=== PATIENT | male | born 1965 | race American Indian/Alaskan Native ===

== ENCOUNTER 2016-12-02 16:15 | Emergency (ER) | payer OTHER ==
--- NOTE | 2016-12-02 17:27 | Emergency Department Report ---
Chief Complaint: Chest Pain Stated Complaint: LEFT SIDE PAIN/NECK/ARMS Time Seen by Provider: 12/02/16 17:25 - HPI History of Present Illness: Patient here complaining of pain in left side of his neck, anterior and posterior shoulder, chest to the left side, radiating to left arm 2 weeks. He reports pain is 6 out of 10 and describes it as pressure. Patient said is worse with movement and lifting. He is also complaining and numbness to his finger on both hands off and on for a couple weeks. Denies any nausea or vomiting. He denies any medical problem. Denies any shortness of breath. - ROS Review of Systems: All systems are negative unless stated in HPI above. - Exam Vital Signs: Vital Signs 12/02/16 16:17 Temperature 97.7 F Pulse Rate 60 Respiratory 18 Rate Blood Pressure 141/90 O2 Sat by Pulse 100 Oximetry Physical Exam: General: This is a 51-year-old male well-nourished well-developed in no acute distress. CV: S1, S2. Regular rate and rhythm Lungs: clear to auscultate bilaterally, no rhonchi wheezes or rales. MSE screening note: Focused history and physical exam performed. Due to findings the following was ordered:see mdm ED Medical Decision Making - Medical Decision Making Medical decision making: Patient seen by provider in triage area. Appropriate protocol activated and patient to main ED to be seen by physician. ED Disposition for MSE Condition: Stable
[2016-12-02 18:08] LABS: Basophils % (Auto) 1.1 % (0.0-1.8); Eosinophils % (Auto) 1.2 % (0.0-4.3); Hematocrit 46.7 % (35.5-45.6); Hemoglobin 16.1 gm/dl (11.8-15.2); Mean Corpuscular HGB Conc 35 % (32-34); Mean Corpuscular Hemoglobin 34 pg (28-32); Mean Corpuscular Volume 100 fl (84-94); Platelet Count 161 K/mm3 (140-440); Red Blood Count 4.68 M/mm3 (3.65-5.03); Red Cell Distribution Width 12.1 % (13.2-15.2); White Blood Count 3.7 K/mm3 (4.5-11.0)
[2016-12-02 18:25] LABS: Creatine Kinase MB 2.5 ng/mL (0.0-4.0)
[2016-12-02 18:26] LABS: Alanine Aminotransferase 19 units/L (7-56); Albumin 4.2 g/dL (3.9-5); Albumin/Globulin Ratio 1.3 %; Alkaline Phosphatase 57 units/L (35-129); Anion Gap 17 mmol/L; BUN/Creatinine Ratio 17.77; Bilirubin,Total 0.7 mg/dL (0.1-1.2); Blood Urea Nitrogen 16 mg/dL (9-20); Calcium 9.2 mg/dL (8.4-10.2); Carbon Dioxide 26 mmol/L (22-30); Chloride 101.6 mmol/L (98-107); Creatine Kinase 113 units/L (55-170); Glucose 73 mg/dL (75-100); Potassium 3.8 mmol/L (3.6-5.0); Sodium 141 mmol/L (137-145); Total Protein 7.5 g/dL (6.3-8.2)
[2016-12-02 18:37] LABS: Bilirubin,Direct < 0.2 mg/dL (0-0.2); Bilirubin,Indirect 0.5 mg/dL
[2016-12-03 00:07] LABS: Creatine Kinase MB 2.2 ng/mL (0.0-4.0)
[2016-12-03 00:08] LABS: Creatine Kinase 109 units/L (55-170)
[2016-12-03] MEDS ORDERED: TORADOL IM ONE (01:55)
--- NOTE | 2016-12-03 01:56 | Emergency Department Report ---
ED General Adult HPI - General Chief complaint: Chest Pain Stated complaint: LEFT SIDE PAIN/NECK/ARMS Time Seen by Provider: 12/02/16 17:25 Source: patient, RN notes reviewed Mode of arrival: Ambulatory Limitations: No Limitations - History of Present Illness Initial comments: This is a 51-year-old male, previously unknown to me. Does not have a primary care doctor. Does not have chronic medical conditions. Denies cocaine use. States some family history of heart disease. Indicates no personal or family history of DVT or pulmonary embolus. Patient recently moved here from [place]. Approximately 2 weeks ago, while in [place], patient developed left-sided neck pain, left upper extremity pain that is shooting and tingling, and left-sided chest wall pain. There is no shortness of breath. There is no nausea, vomiting or diaphoresis. There is no leg pain. No leg swelling. Patient reports that he did drive here, but he reports that he stopped frequently, did not have any periods of immobility of greater than 4 hours. The patient reports that he does heavy lifting for work, and he describes unlimited exercise tolerance. There is no midline neck pain, there is no cavity weakness, there is no bladder or bowel retention or incontinence, there is no saddle anesthesia. -: Gradual Location: neck, chest, left, upper extremity Severity scale (0 -10): 6 Quality: aching Consistency: intermittent Improves with: rest Worsens with: movement Associated Symptoms: denies: confusion, chest pain, diaphoresis, fever/chills, headaches, loss of appetite, malaise, nausea/vomiting, rash, shortness of breath , syncope, weakness - Related Data Previous Rx's Medication Instructions Recorded Last Taken Type Ketorolac [Toradol] 10 mg PO Q6H PRN #20 tablet 12/03/16 Unknown Rx Allergies Allergy/AdvReac Type Severity Reaction Status Date / Time No Known Allergies Allergy Unverified 12/02/16 16:30 ED Review of Systems ROS: Stated complaint: LEFT SIDE PAIN/NECK/ARMS Other details as noted in HPI Constitutional: denies: fever, malaise, weakness Eyes: denies: vision change ENT: denies: epistaxis Respiratory: denies: cough Cardiovascular: as per HPI Gastrointestinal: denies: abdominal pain Genitourinary: denies: dysuria Musculoskeletal: denies: back pain Skin: denies: rash, lesions Neurological: paresthesias Psychiatric: denies: anxiety ED Past Medical Hx - Past Medical History Previous Medical History?: No - Surgical History Past Surgical History?: Yes Additional Surgical History: hernia - Social History Smoking Status: Never Smoker Substance Use Type: Alcohol - Medications Home Medications: Home Medications Medication Instructions Recorded Confirmed Last Taken Type Ketorolac [Toradol] 10 mg PO Q6H PRN #20 tablet 12/03/16 Unknown Rx ED Physical Exam - General Limitations: No Limitations General appearance: alert, in no apparent distress - Head Head exam: Present: atraumatic, normocephalic - Eye Eye exam: Present: normal appearance, EOMI. Absent: nystagmus - ENT ENT exam: Present: normal exam, normal orophraynx, mucous membranes moist - Neck Neck exam: Present: normal inspection, full ROM. Absent: tenderness, meningismus - Respiratory Respiratory exam: Present: normal lung sounds bilaterally. Absent: respiratory distress, wheezes, rales, rhonchi, stridor, chest wall tenderness - Cardiovascular Cardiovascular Exam: Present: regular rate, normal rhythm, normal heart sounds. Absent: bradycardia, tachycardia, irregular rhythm, systolic murmur, diastolic murmur, rubs, gallop - GI/Abdominal GI/Abdominal exam: Present: soft, normal bowel sounds. Absent: distended, tenderness, guarding, rebound, rigid, pulsatile mass - Rectal Rectal exam: Present: deferred - Extremities Exam Extremities exam: Present: normal inspection, full ROM, normal capillary refill. Absent: tenderness, pedal edema, joint swelling, calf tenderness - Back Exam Back exam: Present: normal inspection, full ROM. Absent: tenderness, CVA tenderness (R), CVA tenderness (L), muscle spasm, paraspinal tenderness, vertebral tenderness - Neurological Exam Neurological exam: Present: alert, oriented X3, normal gait, reflexes normal (2 + biceps, triceps, brachial radialis reflexes bilaterally. Downgoing plantar reflexes bilaterally. 2+ quadriceps reflexes bilaterally.), other (Extraocular movements intact. Tongue midline. No facial droop. Facial sensation intact to light touch in the V1, V2, V3 distribution bilaterally. 5 and 5 strength in 4 extremities.. Sensation is intact to light touch in 4 extremities.). Absent : motor sensory deficit (sensation intact to light touch, pinprick, proprioception in 4 extremities.) - Psychiatric Psychiatric exam: Present: normal affect, normal mood - Skin Skin exam: Present: warm, dry, intact, normal color. Absent: rash ED Course Vital Signs 12/02/16 12/03/16 12/03/16 16:17 00:27 01:04 Temperature 97.7 F 98.2 F Pulse Rate 60 57 L 53 L Respiratory 18 22 Rate Blood Pressure 141/90 Blood Pressure 141/93 [Left] O2 Sat by Pulse 100 100 Oximetry 12/03/16 12/03/16 12/03/16 01:05 01:15 01:27 Temperature Pulse Rate 51 L 52 L Respiratory 16 14 11 L Rate Blood Pressure 128/87 128/87 Blood Pressure [Left] O2 Sat by Pulse 99 97 98 Oximetry 12/03/16 12/03/16 12/03/16 01:30 01:45 02:37 Temperature Pulse Rate 52 L 53 L 58 L Respiratory 12 13 Rate Blood Pressure 125/83 128/87 128/87 Blood Pressure [Left] O2 Sat by Pulse 97 97 98 Oximetry 12/03/16 12/03/16 12/03/16 02:39 02:45 03:00 Temperature Pulse Rate 53 L 53 L Respiratory 18 15 13 Rate Blood Pressure 128/85 124/81 Blood Pressure [Left] O2 Sat by Pulse 97 97 Oximetry - Reevaluation(s) Reevaluation #1: 12/03/16 03:05 Differential diagnosis: Muscular pain, radiculopathy, acute coronary syndrome, pneumonia, atypical chest pain Assessment and plan: 51-year-old male with 2 weeks of left-sided neck pain, extremity pain, and chest wall pain. He is afebrile with reassuring vital signs. He has no clinical indication at this time of acute epidural compression syndrome. EKG is morphologically abnormal, but clinical history seems atypical, and symptoms have been present for 2 weeks. I find the patient to be low risk by heart score, and low risk by MARISABEL score. Started prior to his arrival in [place], and I find him to be low risk by well's criteria. He felt improved after pain medication. He will be instructed to follow-up with an outpatient primary care doctor or orthopedist for probable radiculopathy, and to follow up with outpatient cardiology for his abnormal EKG. Return precautions are extensively reviewed. ED Medical Decision Making - Lab Data Result diagrams: 12/02/16 17:51 12/02/16 17:51 Vital Signs 12/02/16 12/03/16 12/03/16 16:17 00:27 01:04 Temperature 97.7 F 98.2 F Pulse Rate 60 57 L 53 L Respiratory 18 22 Rate Blood Pressure 141/90 Blood Pressure 141/93 [Left] O2 Sat by Pulse 100 100 Oximetry 12/03/16 12/03/16 12/03/16 01:05 01:15 02:39 Temperature Pulse Rate 51 L Respiratory 16 14 18 Rate Blood Pressure 128/87 Blood Pressure [Left] O2 Sat by Pulse 99 97 Oximetry Labs 12/02/16 12/02/16 12/02/16 17:51 17:51 20:46 WBC 3.7 L RBC 4.68 Hgb 16.1 H Hct 46.7 H MCV 100 H MCH 34 H MCHC 35 H RDW 12.1 L Plt Count 161 Lymph % (Auto) 41.7 H Luce % (Auto) 14.2 H Eos % (Auto) 1.2 Baso % (Auto) 1.1 Lymph # 1.5 Luce # 0.5 Eos # 0.0 Baso # 0.0 Seg Neutrophils % 41.8 Seg Neutrophils # 1.5 L Sodium 141 Potassium 3.8 Chloride 101.6 Carbon Dioxide 26 Anion Gap 17 BUN 16 Creatinine 0.9 Estimated GFR > 60 BUN/Creatinine Ratio 17.77 Glucose 73 L Calcium 9.2 Total Bilirubin 0.7 Direct Bilirubin < 0.2 Indirect Bilirubin 0.5 AST 22 ALT 19 Alkaline Phosphatase 57 Total Creatine Kinase 113 CK-MB (CK-2) 2.5 CK-MB (CK-2) Rel Index 2.2 Troponin T < 0.010 < 0.010 Total Protein 7.5 Albumin 4.2 Albumin/Globulin Ratio 1.3 12/02/16 23:27 WBC RBC Hgb Hct MCV MCH MCHC RDW Plt Count Lymph % (Auto) Luce % (Auto) Eos % (Auto) Baso % (Auto) Lymph # Luce # Eos # Baso # Seg Neutrophils % Seg Neutrophils # Sodium Potassium Chloride Carbon Dioxide Anion Gap BUN Creatinine Estimated GFR BUN/Creatinine Ratio Glucose Calcium Total Bilirubin Direct Bilirubin Indirect Bilirubin AST ALT Alkaline Phosphatase Total Creatine Kinase 109 CK-MB (CK-2) 2.2 CK-MB (CK-2) Rel Index 2.0 Troponin T < 0.010 Total Protein Albumin Albumin/Globulin Ratio - EKG Data 12/03/16 03:07 EKG demonstrates sinus bradycardia, first degree AV block, nonspecific atrial abnormality, poor R-wave progression, abnormal EKG, not consistent with STEMI, there is no prior EKG available for comparison. - Radiology Data Radiology results: image reviewed interpreted by me: 1 view x-ray chest negative for acute disease. Critical care attestation.: If time is entered above; I have spent that time in minutes in the direct care of this critically ill patient, excluding procedure time. ED Disposition Clinical Impression: Left arm pain Disposition: DISCHARGED TO HOME OR SELFCARE Is pt being admited?: No Does the pt Need Aspirin: No Condition: Good Instructions: Cervical Radiculopathy (ED) Additional Instructions: Rest and avoid heavy lifting. Avoid strenuous physical activity, and heavy lifting. Follow up with a primary care doctor within the next week. Dr. Trejo is a local primary care doctor. Return to the ER right away with extremity weakness, bladder or bowel retention/ incontinence, severe chest pain, shortness of breath, inability to tolerate liquid feeds. Alternatively, you may follow-up with the orthopedic surgeon, Dr. Garay within the next week to 10 days for your left upper extremity pain. EKG demonstrated nonspecific FML's, which should be followed up by either primary care or cardiology as recommended. Follow up with her primary care physician or carbon brushes assembler within the next week to [address] Trejo is a local primary care doctor. Dr. Mascorro is a local carbon brushes assembler. Prescriptions: Ketorolac [Toradol] 10 mg PO Q6H PRN #20 tablet PRN Reason: Pain Referrals: PRIMARY MD VICTORIANO [Primary Care Provider] - 3-5 Days WILLIAM TREJO MD [Staff Physician] - 3-5 Days PITO GARAY MD [Staff Physician] - 3-5 Days ELIUD MASCORRO MD [Staff Physician] - 3-5 Days
[2016-12-03 03:22] VITALS: BP 124/81
--- NOTE | 2016-12-03 08:37 | XRay Report ---
PORTABLE CHEST INDICATION: Chest pain. COMPARISON: None similar at this institution. FINDINGS: Portable, frontal chest radiograph demonstrates mild cardiomegaly. Clear lungs without pleural effusions or CHF. EKG leads. Left AC joint degenerative changes noted. CONCLUSION: Mild cardiomegaly without acute chest process, as described. Please correlate. Thank you for the opportunity to participate in this patient's care.
== END 2016-12-03 03:23 | disposition home or self-care (01) ==
LOC: ED 16:15
DX: M79.602 Pain in left arm (principal)
CPT/HCPCS: 36415; 71010; 80048; 80074; 82550; 82553; 84484; 85025; 93005; 93010; 96372; 99284; J1885